=== PATIENT | male | born 1975 | race Caucasian/White ===

== ENCOUNTER 2020-01-27 06:21 | Observation (INO) ==
[2020-01-27] MEDS ORDERED: Nitroglycerin 0.4 MG TAB.SUBL SL PRN (06:26)
[2020-01-27] MEDS ORDERED: Aspirin 81 MG TAB.CHEW PO ONE (06:26)
[2020-01-27 06:42] LABS: Basophils % 0.4 %; Eosinophils # 0.2 K/mcL (0.0-0.6); Eosinophils % 2.9 %; Hematocrit 40.8 % (37.5-50.1); Hemoglobin 13.9 g/dL (12.9-16.9); Immature Granulocytes % 0.4 % (0-4); Lymphocytes # 1.7 K/mcL (0.6-4.6); Mean Corpuscular HGB Conc 34.1 g/dL (31.6-35.5); Mean Corpuscular Hemoglobin 29.6 pg (28.0-33.3); Mean Corpuscular Volume 86.8 fL (83.0-100.0); Mean Platelet Volume 9.5 fL (9.4-12.4); Monocytes # 0.4 K/mcL (0.0-1.3); Monocytes % 6.9 %; Neutrophils # 3.2 K/mcL (1.6-8.9); Platelet Count 229 K/mcL (140-400); Red Cell Distribution Width 12.9 % (11.5-14.5); Segmented Neutrophils % 58.4 %; White Blood Count 5.5 K/mcL (4.3-11.1)
[2020-01-27 06:49] LABS: Prothrombin Time 12.1 Seconds (9.4-12.1)
[2020-01-27 06:52] LABS: Activated Partial Thrombo Time 26.3 Seconds (26.0-36.0)
[2020-01-27 06:59] LABS: BUN/Creatinine Ratio 14 (6-26); Blood Urea Nitrogen 14 mg/dL (6-20); Calcium 9.6 mg/dL (8.6-10.3); Carbon Dioxide 25 mEq/L (23-29); Chloride 104 mEq/L (98-107); Glucose 200 mg/dL (70-105); Osmolality,Calculated 290 (280-300); Potassium 3.9 mEq/L (3.5-5.1); Sodium 137 mEq/L (136-145); Troponin I < 0.03 ng/mL (< 0.04); eGFR For African Americans > 60 (> 60); eGFR For Non-African Americans > 60 (> 60)
[2020-01-27] MEDS ORDERED: Naloxone 0.4 MG/ML INJ IVP PRN (09:28)
[2020-01-27] MEDS: Metoprolol XL (24 HR) Succ 50 MG TAB.ER.24H PO SCH (11:17)
[2020-01-27] MEDS: lisinopriL 10 MG TABLET PO SCH (11:17)
[2020-01-28] MEDS ORDERED: Regadenoson 0.4 MG/5 ML SYRINGE IVP ONE (05:55)
[2020-01-28 07:13] LABS: BUN/Creatinine Ratio 16 (6-26); Blood Urea Nitrogen 15 mg/dL (6-20); Calcium 9.1 mg/dL (8.6-10.3); Carbon Dioxide 25 mEq/L (23-29); Chloride 103 mEq/L (98-107); Glucose 175 mg/dL (70-105); Osmolality,Calculated 287 (280-300); Potassium 3.9 mEq/L (3.5-5.1); Sodium 136 mEq/L (136-145); eGFR For African Americans > 60 (> 60); eGFR For Non-African Americans > 60 (> 60)
[2020-01-28] MEDS ORDERED: lisinopriL 10 MG TABLET PO SCH (09:00)
[2020-01-28] MEDS ORDERED: Metoprolol XL (24 HR) Succ 50 MG TAB.ER.24H PO SCH (09:00)
[2020-01-28] MEDS: Aspirin Enteric Coated 81 MG Tablet PO SCH ×2 (09:23→13:59)
[2020-01-28] MEDS: lisinopriL 10 MG TABLET PO SCH ×2 (09:23→13:59)
[2020-01-28] MEDS: Metoprolol XL (24 HR) Succ 50 MG TAB.ER.24H PO SCH ×2 (09:23→13:59)
[2020-01-28] MEDS: Isosorbide MONOnitrate (24 HR) 30 MG TAB.ER.24H PO SCH ×2 (09:23→14:00)
[2020-01-28 10:37] LABS: Estimated Average Glucose 203 mg/dl
[2020-01-28 10:38] VITALS: BP 116/67
[2020-01-28 10:59] LABS: Chol/HDL Ratio 4.7 (0-4.9); Cholesterol 122 mg/dL (< 200); HDL Cholesterol 26 mg/dL (40-59); LDL Cholesterol,Calculated 63 mg/dL (< 100); Triglycerides 164 mg/dL (< 150)
[2020-01-28] MEDS ORDERED: D5% in Water 1,000 ML IVC PRN (11:43)
[2020-01-28] MEDS ORDERED: *HR* Dextrose 50 % in Water (Vial) 50 ML VIAL IVP PRN (11:43)
[2020-01-28] MEDS ORDERED: Dextrose Gel 15 GM/37.5 ML TUBE PO PRN ×2 (11:43)
[2020-01-28] MEDS ORDERED: Insulin LISPRO 300 UNITS/3 ML VIAL SQ SCH ×2 (11:45→21:00)
== END 2020-01-28 14:55 | disposition home or self-care (01) ==
LOC: EMEROOARM 06:21 → 3BNU 06:21 → SUATTDRO 09:35 → 3BNU 10:10
PROVIDERS: ADMIT Student in an Organized Health Care Education/Training Program; ATTEND Internal Medicine